=== PATIENT | female | born 1950 | race Caucasian/White ===

== ENCOUNTER 2016-08-24 07:23 | Day surgery (SDC) | payer MEDICARE, BC ==
[2016-08-24] MEDS ORDERED: Sodium Chloride 0.9% 10 ML Syringe FLUSH PRN (08:00)
[2016-08-24 09:47] VITALS: BP 153/99
--- NOTE | 2016-08-24 12:16 | OR ---
DATE OF PROCEDURE: 08/24/2016 POSTOPERATIVE CARE: Postoperative care will be provided mainly at the [address] [place] [address] [facility] in conjunction with [facility]. PREOPERATIVE DIAGNOSIS: Cataract, right eye. PREOPERATIVE DIAGNOSIS: Cataract, right eye. PROCEDURE: Phacoemulsification with intraocular lens placement, right eye. ANESTHESIA: Topical and intracameral. ESTIMATED BLOOD LOSS: Minimal. COMPLICATIONS: None. PATHOLOGY SPECIMENS: None. SURGICAL FINDINGS: None. INDICATION FOR PROCEDURE: The patient is a 65-year-old female with history of a visually significant cataract in the right eye, which interfered with activities of daily living. This consisted of a nuclear sclerosis cataract. Following careful discussion of the risks, benefits and alternatives to cataract extraction with intraocular lens placement including blindness and , the patient elected to proceed, and informed, written consent was obtained prior to the procedure. DESCRIPTION OF THE PROCEDURE: The patient was previously identified, and a latonia placed above the right eye. All sources, including the patient, indicated that the right eye was the correct eye. The patient was subsequently taken to the operating room where standard monitors were applied. The patient was then prepped and draped in the usual sterile fashion for ophthalmic surgery. Attention was first directed at the 12 o'clock position where a paracentesis port was fashioned. Shugar solution followed by Viscoat was instilled into the eye. Attention was then directed to the 8:30 position where a triplanar incision was made in a near-clear manner using a keratome. A continuous capsulorrhexis was then made using a combination of the cystotome and Utrata forceps. Hydrodissection was achieved using a balanced salt solution, and the lens rotated nicely. Phacoemulsification was then done using a modified [id number] technique without complication. Phaco time was 8.04 CDE. The remaining cortex was removed using the irrigation/aspiration handpiece. Provisc was then instilled into the eye. A Technis lens, model [id number], at 18.0 diopters was then placed in the capsular bag using an Yuba injector. The remaining viscoelastic was removed using the irrigation/aspiration forceps. All wounds were then checked and found to be watertight. The lid speculum and drapes were removed. Maxitrol ointment was placed in the patient's right eye, and the eye was shielded. The patient tolerated the procedure well. The patient was instructed to follow up tomorrow. All needle and sponge counts were correct at the end of the procedure. Layla Hicks MD /[id number]
== END 2016-08-24 09:50 | disposition home or self-care (01) ==
LOC: JP.SDS 07:23
PROVIDERS: ATTEND Ophthalmology
PROC: 08RJ3JZ Replacement of Right Lens with Synthetic Substitute, Percutaneous Approach (ICD-10-PCS; principal; 2016-08-24)
DX: H25.11 Age-related nuclear cataract, right eye (principal)
CPT/HCPCS: 66984; C1780; J7050

== ENCOUNTER 2019-03-28 09:18 | Day surgery (SDC) | payer MEDICARE ==
[2019-03-28] MEDS: Lactated Ringers 1,000 ML IV SCH (10:02)
[2019-03-28] MEDS ORDERED: fentaNYL 100 MCG/2 ML SDV ONE (10:22)
[2019-03-28] MEDS ORDERED: Propofol 200 MG/20 ML SDV ONE ×2 (10:22→10:23)
[2019-03-28] MEDS ORDERED: Midazolam 1 MG/ML 2 ML SDV ONE (10:22)
[2019-03-28 12:59] VITALS: BP 132/95; PULSE 98
--- NOTE | 2019-03-31 09:18 | OR ---
DATE OF PROCEDURE: 03/28/2019 SURGEON: Gamaliel Perla MD PREOPERATIVE DIAGNOSES: Strong family history of colon cancer. Sister had colon cancer. Personal history of polyps. POSTOPERATIVE DIAGNOSES: Strong family history of colon cancer. Sister had colon cancer. Personal history of polyps. Diverticulosis. PROCEDURE: Colonoscopy to the cecum. ANESTHESIA: IV anesthesia with monitored anesthesia care. INDICATION: This 68-year-old white female is referred for a colonoscopy because of a strong family history of colon cancer in that her sister had colon cancer and a personal history of colon polyps. I counseled her for the procedure, including risks and alternatives, and she gave her informed consent to proceed. DESCRIPTION OF PROCEDURE: The patient was placed in the left lateral decubitus position. IV anesthesia was administered by the Anesthesia Service. Time-out was held. A rectal exam was performed which was unremarkable. The flexible video Olympus colonoscope was introduced through her anus, up her rectum, and out her colon all the way to the cecum. En route, we saw massive left-sided diverticula. Once the cecum was reached, the scope was slowly withdrawn examining the mucosa throughout. No neoplastic lesions were seen. We did again note the multiple diverticula. There was no bleeding or inflammation associated with any of them. The scope was retroflexed in the rectum with the distal rectum appearing unremarkable. The scope was straightened and removed. She tolerated the procedure well. Gamaliel Perla MD /[id number]
== END 2019-03-28 13:00 | disposition home or self-care (01) ==
LOC: JP.SDS 09:18
PROVIDERS: ATTEND Surgery
DX: Z12.11 Encounter for screening for malignant neoplasm of colon (principal); K57.30 Diverticulosis of large intestine without perforation or abscess without bleeding; K21.9 Gastro-esophageal reflux disease without esophagitis; I48.92 Unspecified atrial flutter; E11.9 Type 2 diabetes mellitus without complications; E78.5 Hyperlipidemia, unspecified; E66.01 Morbid (severe) obesity due to excess calories; Z88.5 Allergy status to narcotic agent; Z86.010 Personal history of colon polyps; Z80.0 Family history of malignant neoplasm of digestive organs; Z68.42 Body mass index [BMI] 45.0-49.9, adult
CPT/HCPCS: G0105; J2250; J2704; J3010; J7120

== ENCOUNTER 2021-09-26 08:57 | Inpatient (IN) | payer MEDICARE ==
[~2021-09-26 08:57] MED LIST: Midazolam 1 MG/ML 2 ML SDV ONE; Phenylephrine 1% 10 MG/ML SDV ONE; Propofol 200 MG/20 ML SDV ONE; Sodium Chloride 0.9% 10 ML ONE; fentaNYL 100 MCG/2 ML SDV ONE
[2021-09-26] MEDS ORDERED: Lactated Ringers 1,000 ML IV SCH (09:30)
[2021-09-26] MEDS ORDERED: Albuterol/Ipratropium 3.0-0.5 MG/3 ML Neb Soln NEB ONE (10:00)
[2021-09-26] MEDS: Nozin Nasal Sanitizer NASBOTH SCH ×2 (10:07→21:04)
[2021-09-26] MEDS ORDERED: ceFAZolin 2 GM in Premix Bag 1 BAG IV ONE (10:15)
[2021-09-26] MEDS ORDERED: Tranexamic Acid 1,000 MG in Sodium Chloride 0.9% 50 ML IV ONE (10:15)
[2021-09-26] MEDS ORDERED: Midazolam 1 MG/ML 2 ML SDV ONE (10:47)
[2021-09-26] MEDS ORDERED: fentaNYL 100 MCG/2 ML SDV ONE (10:47)
[2021-09-26] MEDS ORDERED: Propofol 200 MG/20 ML SDV ONE (10:47)
[2021-09-26] MEDS ORDERED: Lactated Ringers 1,000 ML ONE (12:14)
[2021-09-26] MEDS ORDERED: Bupivacaine 0.5% 30 ML SDV ONE (12:50)
[2021-09-26] MEDS ORDERED: HYDROmorphone 0.5 MG/0.5 ML Syringe IVPUSH PRN (13:22)
[2021-09-26] MEDS ORDERED: Albuterol 8 GM Inhaler INH PRN (13:26)
[2021-09-26] MEDS ORDERED: Acetaminophen 500 MG Tab PO SCH (13:30)
[2021-09-26] MEDS ORDERED: Sodium Chloride 0.9% 1,000 ML IV SCH (13:30)
[2021-09-26] MEDS: Ketorolac 30 MG/ML SDV IVPUSH SCH ×2 (15:05→22:29)
[2021-09-26] MEDS: Acetaminophen 500 MG Tab PO SCH ×2 (15:05→21:07)
[2021-09-26] MEDS: Anastrozole 1 MG Tab PO SCH (15:45)
[2021-09-26] MEDS: oxyCODONE 5 MG Tab PO PRN ×2 (17:01→21:05)
[2021-09-26] MEDS: ceFAZolin 1 GM in Premix Bag 1 BAG IV SCH (18:05)
[2021-09-26] MEDS ORDERED: Nozin Nasal Sanitizer NASBOTH SCH (21:00)
[2021-09-26] MEDS: Docusate Sodium 100 MG Cap PO SCH (21:04)
[2021-09-26] MEDS: Metoprolol Tartrate 50 MG Tab PO SCH (21:05)
[2021-09-26] MEDS: Pravastatin 20 MG Tab PO SCH (21:06)
[2021-09-26] MEDS: Famotidine 20 MG Tab PO SCH (21:06)
[2021-09-26] MEDS: Montelukast 10 MG Tab PO SCH (21:06)
[2021-09-26] MEDS: Formoterol/Mometasone 200-5 MCG 8.8 GM Inhaler IH SCH (21:08)
[2021-09-26] MEDS: Acetaminophen/HYDROcodone 325-5 MG Tab PO PRN (23:37)
[2021-09-27] MEDS: ceFAZolin 1 GM in Premix Bag 1 BAG IV SCH ×2 (01:55→10:08)
[2021-09-27] MEDS: Acetaminophen 500 MG Tab PO SCH ×2 (02:00→08:47)
[2021-09-27] MEDS: Acetaminophen/HYDROcodone 325-5 MG Tab PO PRN (07:18)
[2021-09-27] MEDS: Formoterol/Mometasone 200-5 MCG 8.8 GM Inhaler IH SCH ×2 (07:19→20:13)
[2021-09-27] MEDS: Nozin Nasal Sanitizer NASBOTH SCH ×2 (08:43→20:11)
[2021-09-27] MEDS: Docusate Sodium 100 MG Cap PO SCH ×2 (08:44→20:12)
[2021-09-27] MEDS: Anastrozole 1 MG Tab PO SCH (08:44)
[2021-09-27] MEDS: Celecoxib 200 MG Cap PO SCH ×2 (08:44→20:12)
[2021-09-27] MEDS: Venlafaxine 75 MG Tab PO SCH (08:45)
[2021-09-27] MEDS: Enoxaparin 30 MG/0.3 ML Syringe SUBCUT SCH (08:46)
[2021-09-27] MEDS: Famotidine 20 MG Tab PO SCH ×2 (08:46→20:12)
[2021-09-27] MEDS: Metoprolol Tartrate 50 MG Tab PO SCH ×2 (08:49→20:12)
[2021-09-27] MEDS: Diltiazem 120 MG Cap.CD PO SCH (08:49)
[2021-09-27] MEDS: PHENTERMINE 15 MG PO SCH (08:50)
[2021-09-27] MEDS ORDERED: PHENTERMINE HCL 15 MG PO SCH (09:00)
[2021-09-27] MEDS ORDERED: Anastrozole 1 MG Tab PO SCH (09:00)
[2021-09-27] MEDS: oxyCODONE 5 MG Tab PO PRN ×3 (12:03→21:10)
[2021-09-27] MEDS: Acetaminophen 325 MG Tab PO SCH ×2 (15:55→21:10)
[2021-09-27] MEDS: Pravastatin 20 MG Tab PO SCH (20:11)
[2021-09-27] MEDS: Montelukast 10 MG Tab PO SCH (20:13)
[2021-09-28] MEDS: Acetaminophen 325 MG Tab PO SCH ×2 (03:59→09:49)
[2021-09-28] MEDS: oxyCODONE 5 MG Tab PO PRN ×2 (06:30→10:35)
[2021-09-28] MEDS: Formoterol/Mometasone 200-5 MCG 8.8 GM Inhaler IH SCH (07:13)
[2021-09-28] MEDS: Enoxaparin 30 MG/0.3 ML Syringe SUBCUT SCH (08:38)
[2021-09-28] MEDS: Docusate Sodium 100 MG Cap PO SCH (08:39)
[2021-09-28] MEDS: Venlafaxine 75 MG Tab PO SCH (08:39)
[2021-09-28] MEDS: Celecoxib 200 MG Cap PO SCH (08:39)
[2021-09-28] MEDS: Famotidine 20 MG Tab PO SCH (08:39)
[2021-09-28] MEDS: Anastrozole 1 MG Tab PO SCH (08:39)
[2021-09-28] MEDS: Nozin Nasal Sanitizer NASBOTH SCH (08:40)
[2021-09-28] MEDS: PHENTERMINE 15 MG PO SCH (08:42)
[2021-09-28] MEDS: Diltiazem 120 MG Cap.CD PO SCH (08:44)
[2021-09-28] MEDS: Metoprolol Tartrate 50 MG Tab PO SCH (08:44)
[2021-09-28 10:28] VITALS: BP 109/44; PULSE 82
== END 2021-09-28 13:05 | disposition home or self-care (01) | DRG 554 ==
LOC: JP.SDS 08:57 → JP.MS 13:22 → JP.SDS 09-27 12:00 → JP.MS 09-27 12:38
PROVIDERS: ADMIT Specialist; ATTEND Specialist
DX: M17.11 Unilateral primary osteoarthritis, right knee (principal); Z68.42 Body mass index [BMI] 45.0-49.9, adult; K21.9 Gastro-esophageal reflux disease without esophagitis; F41.9 Anxiety disorder, unspecified; Z85.3 Personal history of malignant neoplasm of breast; F32.A Depression, unspecified; J45.20 Mild intermittent asthma, uncomplicated; E78.5 Hyperlipidemia, unspecified; C50.911 Malignant neoplasm of unspecified site of right female breast; E66.01 Morbid (severe) obesity due to excess calories; Z79.899 Other long term (current) drug therapy; Z79.82 Long term (current) use of aspirin; Z88.5 Allergy status to narcotic agent; E11.9 Type 2 diabetes mellitus without complications
CPT/HCPCS: 27447; 36415; 73560-26-RT; 73560-RT; 85027; 94640; 97110-GP; 97116-GP; 97161-GP; 97530-GP; A9270-GY; C1713; C1776; J0690; J1170; J1650; J1885; J2250; J2370; J2704; J3010; J3490; J7120; J7620

== ENCOUNTER 2021-11-14 06:46 | Emergency (ER) | payer MEDICARE ==
[2021-11-14] MEDS ORDERED: Morphine 4 MG/ML Syringe IVPUSH PRN (06:55)
[2021-11-14] MEDS ORDERED: Sodium Chloride 0.9% 10 ML Syringe FLUSH PRN (06:55)
[2021-11-14] MEDS ORDERED: Nitroglycerin 0.4 MG Tab.SL SL PRN (06:55)
[2021-11-14 07:33] LABS: ESTIMATED GFR 54 (>60)
[2021-11-14] MEDS ORDERED: Alum Hydrox/Mag Hydrox/Simeth 15 ML, Lidocaine 2% 15 ML PO ONE ×2 (07:37)
[2021-11-14 09:39] VITALS: BP 151/82; PULSE 90
== END 2021-11-14 10:37 | disposition home or self-care (01) ==
LOC: JP.ED 06:46
DX: R07.89 Other chest pain (principal); J45.909 Unspecified asthma, uncomplicated; E78.00 Pure hypercholesterolemia, unspecified; I10 Essential (primary) hypertension; E66.9 Obesity, unspecified; Z68.42 Body mass index [BMI] 45.0-49.9, adult; Z86.16 Personal history of COVID-19; Z79.899 Other long term (current) drug therapy; Z88.5 Allergy status to narcotic agent; Z88.6 Allergy status to analgesic agent
CPT/HCPCS: 36415; 71045; 71045-26; 80053; 83605; 84484; 85025; 93005; 93010; 96374; 99284; 99285-25; A9270-GY; J2270; J3490

== ENCOUNTER 2023-05-20 15:41 | Emergency (ER) | payer MEDICARE ==
[2023-05-20 16:45] LABS: CORONAVIRUS COVID-19 NAA NEGATIVE (NEGATIVE); INFLUENZA A NAA NEGATIVE (NEGATIVE); INFLUENZA B NAA NEGATIVE (NEGATIVE); RESPIRATORY SYNCYTIAL VIR NAA NEGATIVE (NEGATIVE)
[2023-05-20] MEDS ORDERED: Sodium Chloride 0.9% 10 ML Syringe FLUSH PRN (16:52)
[2023-05-20 17:09] LABS: BASOPHILS ABSOLUTE AUTO 0.04 K/uL (0.00-0.10); BASOPHILS PERCENT AUTO 0.4 % (0.1-1.3); EOSINOPHILS PERCENT AUTO 0.9 % (0.0-5.4); HEMATOCRIT 37.8 % (34.3-46.0); HEMOGLOBIN 12.4 g/dL (11.2-15.5); IMMATURE GRAN ABSOLUTE AUTO 0.03 K/uL (0.00-0.23); IMMATURE GRAN PERCENT AUTO 0.3 % (0.0-0.7); LYMPHOCYTES ABSOLUTE AUTO 1.49 K/uL (0.8-3.3); MEAN CORPUSCULAR HEMOGLOBIN 27.1 pg (31.6-35.5); MEAN CORPUSCULAR HGB CONC 32.8 g/dL (31.6-35.5); MEAN CORPUSCULAR VOLUME 82.7 fL (81.4-99.0); MONOCYTES ABSOLUTE AUTO 0.95 K/uL (0.20-0.90); MONOCYTES PERCENT AUTO 8.3 % (3.3-12.6); NEUTROPHILS ABSOLUTE AUTO 8.81 K/uL (1.0-7.6); NEUTROPHILS PERCENT AUTO 77.1 % (40.0-78.1); PLATELET COUNT,PLT 271 K/uL (130-375); RED BLOOD CELL COUNT 4.57 M/uL (3.77-5.24); WHITE BLOOD CELL COUNT,WBC 11.4 K/uL (3.2-11.0)
[2023-05-20] MEDS ORDERED: Diltiazem 25 MG/5 ML SDV IVPUSH ONE (17:19)
[2023-05-20] MEDS ORDERED: Sodium Chloride 0.9% 500 ML IV ONE (17:20)
[2023-05-20 17:39] LABS: A/G RATIO 0.9 (1.2-2.2); ALANINE AMINOTRANSFERASE,ALT 31 U/L (12-78); ALBUMIN 3.2 g/dL (3.4-5.0); ALKALINE PHOSPHATASE 83 U/L (46-116); ANION GAP 16.2 mmol/L (5.0-14.0); ASPARTATE AMNIOTRANSFERASE,AST 24 U/L (15-37); BILIRUBIN TOTAL 1.4 mg/dL (0.2-1.0); BLOOD UREA NITROGEN,BUN 21 mg/dL (7-18); CARBON DIOXIDE,CO2 24 mmol/L (21-32); CHLORIDE,CL 103 mmol/L (100-108); CREATININE 1.4 mg/dL (0.6-1.0); EST CRCL DRUG DOSING (CG) 29.16 mL/min; ESTIMATED GFR 39 mL/min (>60); GLUCOSE RANDOM 156 mg/dL (74-106); POTASSIUM,K 4.2 mmol/L (3.6-5.2); PROTEIN TOTAL,TP 6.6 g/dL (6.4-8.2); SODIUM,NA 139 mmol/L (140-148)
[2023-05-20] MEDS ORDERED: Aspirin 81 MG Tab.Chew PO ONE ×3 (17:46→18:08)
[2023-05-20 17:47] LABS: TSH ULTRASENSITIVE 1.296 uIU/mL (0.358-3.740)
[2023-05-20] MEDS ORDERED: Iopamidol 755 Mg/ML 100 ML Bottle IV SCH (18:15)
[2023-05-20] MEDS ORDERED: Sodium Chloride 0.9% 1,000 ML IV SCH (18:15)
[2023-05-20] MEDS ORDERED: Sodium Chloride 0.9% 100 ML IV SCH (18:15)
[2023-05-20] MEDS ORDERED: Diltiazem 100 MG in Sodium Chloride 0.9% 100 ML IV SCH (18:15)
[2023-05-20] MEDS ORDERED: Heparin Sodium 5,000 Units/ML Vial IVPUSH ONE (18:40)
[2023-05-20] MEDS ORDERED: Heparin Sodium/D5W 25,000 UNITS/500 ML BAG IV SCH (18:45)
[2023-05-20 18:54] VITALS: BP 134/102; PULSE 139
== END 2023-05-20 19:56 ==
LOC: JP.ED 15:41
DX: I48.91 Unspecified atrial fibrillation (principal); I44.7 Left bundle-branch block, unspecified; I45.81 Long QT syndrome; R77.8 Other specified abnormalities of plasma proteins; R79.89 Other specified abnormal findings of blood chemistry; N18.30 Chronic kidney disease, stage 3 unspecified; Z85.3 Personal history of malignant neoplasm of breast; I10 Essential (primary) hypertension; E78.00 Pure hypercholesterolemia, unspecified; E11.9 Type 2 diabetes mellitus without complications; E66.9 Obesity, unspecified; Z68.42 Body mass index [BMI] 45.0-49.9, adult; Z86.16 Personal history of COVID-19; Z88.5 Allergy status to narcotic agent; Z79.84 Long term (current) use of oral hypoglycemic drugs; Z79.82 Long term (current) use of aspirin; Z79.899 Other long term (current) drug therapy; Z20.822 Contact with and (suspected) exposure to COVID-19
CPT/HCPCS: 0241U; 36415; 71045; 71275; 80053; 83735; 83880; 84145; 84443; 84484; 85025; 85379; 93005; 96361; 96365; 96375; 96376; 99285; A9270; J1644; J3490; J7040; Q9967

== ENCOUNTER 2024-06-25 18:44 | Inpatient (IN) | payer MEDICARE ==
[2024-06-25 19:13] LABS: BASOPHILS ABSOLUTE AUTO 0.04 K/uL (0.00-0.10); BASOPHILS PERCENT AUTO 0.4 % (0.1-1.3); EOSINOPHILS ABSOLUTE AUTO 0.19 K/uL (0.00-0.40); EOSINOPHILS PERCENT AUTO 2.1 % (0.0-5.4); HEMOGLOBIN 15.8 g/dL (11.2-15.5); IMMATURE GRAN ABSOLUTE AUTO 0.02 K/uL (0.00-0.23); IMMATURE GRAN PERCENT AUTO 0.2 % (0.0-0.7); LYMPHOCYTES ABSOLUTE AUTO 2.31 K/uL (0.8-3.3); LYMPHOCYTES PERCENT AUTO 25.6 % (11.4-47.7); MEAN CORPUSCULAR HEMOGLOBIN 27.2 pg (31.6-35.5); MEAN CORPUSCULAR HGB CONC 32.9 g/dL (31.6-35.5); MEAN CORPUSCULAR VOLUME 82.6 fL (81.4-99.0); MONOCYTES ABSOLUTE AUTO 0.69 K/uL (0.20-0.90); MONOCYTES PERCENT AUTO 7.6 % (3.3-12.6); NEUTROPHILS ABSOLUTE AUTO 5.78 K/uL (1.0-7.6); NEUTROPHILS PERCENT AUTO 64.1 % (40.0-78.1); PLATELET COUNT,PLT 333 K/uL (130-375); RED BLOOD CELL COUNT 5.81 M/uL (3.77-5.24)
[2024-06-25] MEDS: Diltiazem 25 MG/5 ML SDV IVPUSH ONE (19:23)
[2024-06-25] MEDS: Sodium Chloride 0.9% 10 ML Syringe FLUSH PRN (19:23)
[2024-06-25 19:27] LABS: ALANINE AMINOTRANSFERASE,ALT 23 U/L (12-78); ALBUMIN 3.9 g/dL (3.4-5.0); ALKALINE PHOSPHATASE 85 U/L (46-116); ASPARTATE AMNIOTRANSFERASE,AST 18 U/L (15-37); BILIRUBIN TOTAL 1.4 mg/dL (0.2-1.0); BLOOD UREA NITROGEN,BUN 14 mg/dL (7-18); CALCIUM 9.6 mg/dL (8.5-10.1); CARBON DIOXIDE,CO2 31 mmol/L (21-32); CHLORIDE,CL 99 mmol/L (100-108); CREATININE 1.3 mg/dL (0.6-1.0); EST CRCL DRUG DOSING (CG) 30.93 mL/min; ESTIMATED GFR 43 mL/min (>60); GLUCOSE RANDOM 151 mg/dL (74-106); PROTEIN TOTAL,TP 7.7 g/dL (6.4-8.2); SODIUM,NA 136 mmol/L (140-148)
[2024-06-25 19:28] LABS: TROPONIN I HIGH SENSITIVITY 13.5 pg/mL (<=60.3)
[2024-06-25] MEDS: Diltiazem 100 MG in Sodium Chloride 0.9% 100 ML IV SCH (21:53)
[2024-06-25] MEDS ORDERED: Melatonin 3 MG Tab PO PRN (23:19)
[2024-06-26] MEDS: Metoprolol Tartrate 50 MG Tab PO SCH ×2 (00:56→06:53)
[2024-06-26 05:51] LABS: BASOPHILS ABSOLUTE AUTO 0.03 K/uL (0.00-0.10); BASOPHILS PERCENT AUTO 0.3 % (0.1-1.3); EOSINOPHILS ABSOLUTE AUTO 0.18 K/uL (0.00-0.40); EOSINOPHILS PERCENT AUTO 1.7 % (0.0-5.4); HEMATOCRIT 44.6 % (34.3-46.0); HEMOGLOBIN 15.1 g/dL (11.2-15.5); IMMATURE GRAN PERCENT AUTO 0.2 % (0.0-0.7); LYMPHOCYTES ABSOLUTE AUTO 2.46 K/uL (0.8-3.3); LYMPHOCYTES PERCENT AUTO 23.7 % (11.4-47.7); MEAN CORPUSCULAR HEMOGLOBIN 28.1 pg (31.6-35.5); MEAN CORPUSCULAR HGB CONC 33.9 g/dL (31.6-35.5); MEAN CORPUSCULAR VOLUME 82.9 fL (81.4-99.0); MONOCYTES ABSOLUTE AUTO 0.96 K/uL (0.20-0.90); MONOCYTES PERCENT AUTO 9.3 % (3.3-12.6); NEUTROPHILS ABSOLUTE AUTO 6.71 K/uL (1.0-7.6); NEUTROPHILS PERCENT AUTO 64.8 % (40.0-78.1); PLATELET COUNT,PLT 250 K/uL (130-375); RED BLOOD CELL COUNT 5.38 M/uL (3.77-5.24); WHITE BLOOD CELL COUNT,WBC 10.4 K/uL (3.2-11.0)
[2024-06-26 06:17] LABS: IMMATURE GRAN ABSOLUTE AUTO 0.02 K/uL (0.00-0.23)
[2024-06-26 06:26] LABS: ALANINE AMINOTRANSFERASE,ALT 20 U/L (12-78); ALBUMIN 3.3 g/dL (3.4-5.0); ALKALINE PHOSPHATASE 72 U/L (46-116); ANION GAP 9.1 mmol/L (5.0-14.0); ASPARTATE AMNIOTRANSFERASE,AST 16 U/L (15-37); BILIRUBIN TOTAL 1.7 mg/dL (0.2-1.0); BLOOD UREA NITROGEN,BUN 18 mg/dL (7-18); CALCIUM 9.3 mg/dL (8.5-10.1); CARBON DIOXIDE,CO2 29 mmol/L (21-32); CHLORIDE,CL 103 mmol/L (100-108); CREATININE 1.4 mg/dL (0.6-1.0); EST CRCL DRUG DOSING (CG) 28.72 mL/min; ESTIMATED GFR 39 mL/min (>60); GLUCOSE RANDOM 114 mg/dL (74-106); POTASSIUM,K 3.6 mmol/L (3.6-5.2); PROTEIN TOTAL,TP 6.6 g/dL (6.4-8.2); SODIUM,NA 141 mmol/L (140-148); TROPONIN I HIGH SENSITIVITY 19.6 pg/mL (<=60.3)
[2024-06-26] MEDS ORDERED: Albuterol 6.7 GM Inhaler INH PRN (07:24)
[2024-06-26] MEDS: Metoprolol Tartrate 50 MG Tab ONE (07:50)
[2024-06-26] MEDS: Diltiazem 125 MG in Sodium Chloride 0.9% 100 ML IV SCH (08:10)
[2024-06-26] MEDS: Anastrozole 1 MG Tab PO SCH (10:01)
[2024-06-26] MEDS: Venlafaxine 37.5 MG Cap.ER PO SCH (10:02)
[2024-06-26] MEDS: Apixaban 5 MG Tab PO SCH (10:02)
[2024-06-26] MEDS: Empagliflozin 10 MG Tab PO SCH (10:03)
[2024-06-26] MEDS: Famotidine 20 MG Tab PO SCH (10:04)
[2024-06-26] MEDS: Magnesium Oxide 400 MG Tab PO SCH (10:04)
[2024-06-26] MEDS: Formoterol/Mometasone 200-5 MCG 8.8 GM Inhaler IH SCH (10:26)
[2024-06-26] MEDS ORDERED: Propofol 200 MG/20 ML SDV ONE (10:34)
[2024-06-26] MEDS: Diltiazem 120 MG Cap.CD PO SCH (11:07)
[2024-06-26] MEDS: Potassium Chloride 20 MEQ Tab.ER PO SCH (13:23)
[2024-06-26 15:31] VITALS: BP 117/61; PULSE 69
[2024-06-26] MEDS ORDERED: Metoprolol Tartrate 50 MG Tab PO SCH (18:00)
[2024-06-26] MEDS ORDERED: Montelukast 10 MG Tab PO SCH (21:00)
[2024-06-26] MEDS ORDERED: Pravastatin 20 MG Tab PO SCH (21:00)
[2024-06-27] MEDS ORDERED: Famotidine 20 MG Tab PO SCH (09:00)
== END 2024-06-26 16:00 | disposition home or self-care (01) | DRG 309 ==
LOC: JP.ED 18:44 → JP.ICU 23:19
PROVIDERS: ADMIT Nurse Practitioner; ATTEND Internal Medicine
PROC: 5A2204Z Restoration of Cardiac Rhythm, Single (ICD-10-PCS; principal; 2024-06-25)
DX: I48.20 Chronic atrial fibrillation, unspecified (principal); I11.0 Hypertensive heart disease with heart failure; I50.9 Heart failure, unspecified; I48.0 Paroxysmal atrial fibrillation; E11.9 Type 2 diabetes mellitus without complications; I13.0 Hypertensive heart and chronic kidney disease with heart failure and stage 1 through stage 4 chronic kidney disease, or unspecified chronic kidney disease; I50.32 Chronic diastolic (congestive) heart failure; Z68.42 Body mass index [BMI] 45.0-49.9, adult; H54.7 Unspecified visual loss; E78.00 Pure hypercholesterolemia, unspecified; K21.9 Gastro-esophageal reflux disease without esophagitis; E66.01 Morbid (severe) obesity due to excess calories; Z96.659 Presence of unspecified artificial knee joint; I44.7 Left bundle-branch block, unspecified; N18.31 Chronic kidney disease, stage 3a; E11.22 Type 2 diabetes mellitus with diabetic chronic kidney disease; F32.A Depression, unspecified; Z98.49 Cataract extraction status, unspecified eye; Z90.89 Acquired absence of other organs; Z98.891 History of uterine scar from previous surgery; Z98.51 Tubal ligation status; Z98.890 Other specified postprocedural states; Z79.01 Long term (current) use of anticoagulants; Z88.6 Allergy status to analgesic agent; Z88.5 Allergy status to narcotic agent; Z88.8 Allergy status to other drugs, medicaments and biological substances; Z79.51 Long term (current) use of inhaled steroids; Z79.1 Long term (current) use of non-steroidal anti-inflammatories (NSAID); Z79.84 Long term (current) use of oral hypoglycemic drugs; Z79.899 Other long term (current) drug therapy; Z85.3 Personal history of malignant neoplasm of breast
CPT/HCPCS: 36415; 71045 ×2; 80053; 83880; 84484 ×2; 85025; 93005; J3490 ×3; 83735; 93306; 94640; 96365; 96376; 99285-25; A9270-GY; J2704

== ENCOUNTER 2024-06-30 14:28 | Inpatient (IN) | payer MEDICARE ==
[2024-06-30 14:55] LABS: BASOPHILS ABSOLUTE AUTO 0.03 K/uL (0.00-0.10); BASOPHILS PERCENT AUTO 0.4 % (0.1-1.3); EOSINOPHILS ABSOLUTE AUTO 0.22 K/uL (0.00-0.40); EOSINOPHILS PERCENT AUTO 2.6 % (0.0-5.4); HEMATOCRIT 45.9 % (34.3-46.0); HEMOGLOBIN 15.4 g/dL (11.2-15.5); IMMATURE GRAN PERCENT AUTO 0.2 % (0.0-0.7); LYMPHOCYTES ABSOLUTE AUTO 1.93 K/uL (0.8-3.3); LYMPHOCYTES PERCENT AUTO 22.9 % (11.4-47.7); MEAN CORPUSCULAR HGB CONC 33.6 g/dL (31.6-35.5); MEAN CORPUSCULAR VOLUME 83.5 fL (81.4-99.0); MONOCYTES PERCENT AUTO 8.3 % (3.3-12.6); NEUTROPHILS ABSOLUTE AUTO 5.54 K/uL (1.0-7.6); NEUTROPHILS PERCENT AUTO 65.6 % (40.0-78.1); PLATELET COUNT,PLT 328 K/uL (130-375); WHITE BLOOD CELL COUNT,WBC 8.4 K/uL (3.2-11.0)
[2024-06-30 14:57] LABS: IMMATURE GRAN ABSOLUTE AUTO 0.02 K/uL (0.00-0.23)
[2024-06-30 15:07] LABS: A/G RATIO 1.1 (1.2-2.2); ALANINE AMINOTRANSFERASE,ALT 24 U/L (12-78); ALBUMIN 3.8 g/dL (3.4-5.0); ALKALINE PHOSPHATASE 79 U/L (46-116); ANION GAP 10.9 mmol/L (5.0-14.0); ASPARTATE AMNIOTRANSFERASE,AST 21 U/L (15-37); BILIRUBIN TOTAL 1.2 mg/dL (0.2-1.0); BLOOD UREA NITROGEN,BUN 12 mg/dL (7-18); CALCIUM 9.9 mg/dL (8.5-10.1); CARBON DIOXIDE,CO2 27 mmol/L (21-32); CHLORIDE,CL 103 mmol/L (100-108); CREATININE 1.2 mg/dL (0.6-1.0); ESTIMATED GFR 47 mL/min (>60); GLUCOSE RANDOM 147 mg/dL (74-106); POTASSIUM,K 4.1 mmol/L (3.6-5.2); PROTEIN TOTAL,TP 7.4 g/dL (6.4-8.2); SODIUM,NA 141 mmol/L (140-148)
[2024-06-30] MEDS: Diltiazem 25 MG/5 ML SDV IVPUSH ONE (15:57)
[2024-06-30] MEDS ORDERED: Sodium Chloride 0.9% 10 ML Syringe FLUSH PRN (18:03)
[2024-06-30] MEDS ORDERED: Polyethylene Glycol 3350 Powder 17 GM Packet PO PRN (18:03)
[2024-06-30] MEDS ORDERED: 50% Dextrose in Water 50 ML Syringe IV PRN (18:03)
[2024-06-30] MEDS ORDERED: Albuterol 0.083% 2.5 MG/3 ML Neb Soln NEB PRN (18:03)
[2024-06-30] MEDS ORDERED: Albuterol 6.7 GM Inhaler INH PRN (18:03)
[2024-06-30] MEDS ORDERED: Glucose Gel 15 GM in 37.5 GM Tube PO PRN (18:03)
[2024-06-30] MEDS ORDERED: Acetaminophen 325 MG Tab PO PRN (18:03)
[2024-06-30] MEDS ORDERED: Diclofenac Sodium 1% Gel 100 GM Tube TOP PRN (18:03)
[2024-06-30] MEDS: metFORMIN 500 MG Tab PO SCH (18:47)
[2024-06-30] MEDS: Insulin Lispro 100 Unit/ML 3 ML KwikPen SUBCUT SCH (21:13)
[2024-06-30] MEDS: Apixaban 5 MG Tab PO SCH (21:14)
[2024-06-30] MEDS: Pravastatin 20 MG Tab PO SCH (21:14)
[2024-06-30] MEDS: Montelukast 10 MG Tab PO SCH (21:16)
[2024-06-30] MEDS: Formoterol/Mometasone 200-5 MCG 8.8 GM Inhaler INH SCH (21:16)
[2024-06-30] MEDS: Gabapentin 100 MG Cap PO SCH (21:16)
[2024-06-30] MEDS: Famotidine 20 MG Tab PO SCH (21:16)
[2024-06-30] MEDS: Sotalol 80 MG Tab PO SCH (21:25)
[2024-07-01 05:59] LABS: HEMATOCRIT 39.3 % (34.3-46.0); MEAN CORPUSCULAR HEMOGLOBIN 28.1 pg (31.6-35.5); MEAN CORPUSCULAR HGB CONC 33.1 g/dL (31.6-35.5); MEAN CORPUSCULAR VOLUME 84.9 fL (81.4-99.0); RED BLOOD CELL COUNT 4.63 M/uL (3.77-5.24); WHITE BLOOD CELL COUNT,WBC 5.3 K/uL (3.2-11.0)
[2024-07-01 06:16] LABS: ANION GAP 6.6 mmol/L (5.0-14.0); CREATININE 1.2 mg/dL (0.6-1.0); EST CRCL DRUG DOSING (CG) 33.51 mL/min; POTASSIUM,K 4.1 mmol/L (3.6-5.2)
[2024-07-01] MEDS ORDERED: Formoterol/Mometasone 200-5 MCG 8.8 GM Inhaler INH SCH (07:30)
[2024-07-01] MEDS: Potassium Chloride 20 MEQ Tab.ER PO SCH (07:52)
[2024-07-01] MEDS: Empagliflozin 10 MG Tab PO SCH (07:55)
[2024-07-01] MEDS: Magnesium Oxide 400 MG Tab PO SCH (07:55)
[2024-07-01] MEDS: Diltiazem 120 MG Cap.CD PO SCH (07:56)
[2024-07-01] MEDS: Venlafaxine 37.5 MG Cap.ER PO SCH (07:56)
[2024-07-01] MEDS: Anastrozole 1 MG Tab PO SCH (07:57)
[2024-07-01] MEDS: Furosemide 40 MG Tab PO SCH (07:57)
[2024-07-01] MEDS: Formoterol/Mometasone 200-5 MCG 8.8 GM Inhaler INH SCH (08:07)
[2024-07-01] MEDS ORDERED: Propofol 200 MG/20 ML SDV ONE (09:05)
[2024-07-02] MEDS: Metoprolol Tartrate 25 MG Tab PO SCH (14:00)
[2024-07-03 11:29] VITALS: BP 148/88; PULSE 68
== END 2024-07-03 15:59 | disposition home or self-care (01) | DRG 309 ==
LOC: JP.ED 14:28 → JP.MS 16:55
PROVIDERS: ADMIT Hospitalist; ATTEND Hospitalist
PROC: 5A2204Z Restoration of Cardiac Rhythm, Single (ICD-10-PCS; principal; 2024-06-30)
DX: I48.0 Paroxysmal atrial fibrillation (principal); Z68.42 Body mass index [BMI] 45.0-49.9, adult; I48.91 Unspecified atrial fibrillation; I10 Essential (primary) hypertension; H54.7 Unspecified visual loss; E78.00 Pure hypercholesterolemia, unspecified; F32.A Depression, unspecified; J45.909 Unspecified asthma, uncomplicated; E66.01 Morbid (severe) obesity due to excess calories; I44.7 Left bundle-branch block, unspecified; I12.9 Hypertensive chronic kidney disease with stage 1 through stage 4 chronic kidney disease, or unspecified chronic kidney disease; N18.31 Chronic kidney disease, stage 3a; K21.9 Gastro-esophageal reflux disease without esophagitis; Z96.659 Presence of unspecified artificial knee joint; E11.9 Type 2 diabetes mellitus without complications; Z88.5 Allergy status to narcotic agent; Z98.51 Tubal ligation status; Z98.890 Other specified postprocedural states; Z86.718 Personal history of other venous thrombosis and embolism; Z79.51 Long term (current) use of inhaled steroids; Z98.891 History of uterine scar from previous surgery; Z79.84 Long term (current) use of oral hypoglycemic drugs; Z88.8 Allergy status to other drugs, medicaments and biological substances; Z79.01 Long term (current) use of anticoagulants; Z79.899 Other long term (current) drug therapy
CPT/HCPCS: 36415; 80048; 80053; 82947; 83735; 85025; 85027; 92960; 93005; 93010; 94640; 99222; 99232; 99238; 99285; 99285-25; A9270-GY; J1815; J2704

== ENCOUNTER 2024-12-06 18:51 | Emergency (ER) | payer MEDICARE ==
[2024-12-06] MEDS ORDERED: Propofol 200 MG/20 ML SDV ONE (19:45)
[2024-12-06 19:47] VITALS: BP 130/70; PULSE 70
== END 2024-12-06 20:51 | disposition home or self-care (01) ==
LOC: JP.ED 18:51
DX: I48.91 Unspecified atrial fibrillation (principal); I10 Essential (primary) hypertension; E11.9 Type 2 diabetes mellitus without complications; E78.00 Pure hypercholesterolemia, unspecified; Z88.5 Allergy status to narcotic agent; Z88.8 Allergy status to other drugs, medicaments and biological substances; Z79.899 Other long term (current) drug therapy; Z79.51 Long term (current) use of inhaled steroids; Z79.01 Long term (current) use of anticoagulants
CPT/HCPCS: 00410; 93005; 93010; 99284; J2704

== ENCOUNTER 2025-02-01 23:03 | Emergency (ER) | payer MEDICARE ==
[2025-02-01 23:48] LABS: BLOOD UREA NITROGEN,BUN 18.0 mg/dL (7-18); CARBON DIOXIDE,CO2 27.0 mmol/L (21-32); CHLORIDE,CL 103.0 mmol/L (100-108); CREATININE 1.1 mg/dL (0.6-1.0); EST CRCL DRUG DOSING (CG) 35.99 mL/min; ESTIMATED GFR 52.0 mL/min (>60); GLUCOSE RANDOM 165.0 mg/dL (74-106); POTASSIUM,K 3.5 mmol/L (3.6-5.2); SODIUM,NA 138.0 mmol/L (140-148)
[2025-02-01 23:49] LABS: TROPONIN I HIGH SENSITIVITY 287.7 pg/mL (<=60.3)
[2025-02-01 23:55] LABS: BASOPHILS ABSOLUTE AUTO 0.03 K/uL (0.00-0.10); BASOPHILS PERCENT AUTO 0.3 % (0.1-1.3); EOSINOPHILS ABSOLUTE AUTO 0.11 K/uL (0.00-0.40); EOSINOPHILS PERCENT AUTO 1.2 % (0.0-5.4); IMMATURE GRAN ABSOLUTE AUTO 0.04 K/uL (0.00-0.23); IMMATURE GRAN PERCENT AUTO 0.4 % (0.0-0.7); LYMPHOCYTES ABSOLUTE AUTO 2.12 K/uL (0.8-3.3); LYMPHOCYTES PERCENT AUTO 23.1 % (11.4-47.7); MONOCYTES ABSOLUTE AUTO 0.72 K/uL (0.20-0.90); MONOCYTES PERCENT AUTO 7.9 % (3.3-12.6); NEUTROPHILS ABSOLUTE AUTO 6.15 K/uL (1.0-7.6); NEUTROPHILS PERCENT AUTO 67.1 % (40.0-78.1); PLATELET COUNT,PLT 253 K/uL (130-375); RED BLOOD CELL COUNT 5.34 M/uL (3.77-5.24); WHITE BLOOD CELL COUNT,WBC 9.2 K/uL (3.2-11.0)
[2025-02-02] MEDS ORDERED: Propofol 200 MG/20 ML SDV ONE (00:59)
[2025-02-02 05:00] VITALS: PULSE 61
[2025-02-02 05:04] VITALS: BP 147/77
== END 2025-02-02 01:35 | disposition home or self-care (01) ==
LOC: JP.ED 23:03
DX: I48.91 Unspecified atrial fibrillation (principal); I10 Essential (primary) hypertension; E78.00 Pure hypercholesterolemia, unspecified; K21.9 Gastro-esophageal reflux disease without esophagitis; E11.9 Type 2 diabetes mellitus without complications; J45.909 Unspecified asthma, uncomplicated; Z79.899 Other long term (current) drug therapy; Z79.84 Long term (current) use of oral hypoglycemic drugs; Z88.5 Allergy status to narcotic agent; Z88.8 Allergy status to other drugs, medicaments and biological substances
CPT/HCPCS: 36415; 80048; 83735; 84484; 85025; 92960; 93005; 99285; J2704